=== PATIENT | male | born 1980 | race American Indian/Alaskan Native ===

== ENCOUNTER 2016-10-30 14:30 | Emergency (ER) | payer BC ==
[2016-10-30 14:55] VITALS: BP 142/97
== END 2016-10-30 23:07 | disposition left against medical advice (07) ==
LOC: ED 14:30
DX: J45.909 Unspecified asthma, uncomplicated (principal); Z91.013 Allergy to seafood; Z91.02 Food additives allergy status; Z53.21 Procedure and treatment not carried out due to patient leaving prior to being seen by health care provider